=== PATIENT | male | born 1995 | race Caucasian/White ===

== ENCOUNTER 2021-01-02 22:35 | Emergency (ER) | payer OTHER, SELFPAY ==
[2021-01-02 22:56] VITALS: BP 132/85; PULSE 85; RESP 18; TEMP 36.6; O2SAT 96; BMI 31.7
== END 2021-01-03 00:45 | disposition left against medical advice (07) ==
PROVIDERS: Emergency Provider Emergency Medicine
DX: M79.672 Pain in left foot (principal)
CPT/HCPCS: 99281; 99284

== ENCOUNTER 2021-03-24 21:26 | Emergency (ER) | payer OTHER, SELFPAY ==
--- NOTE | 2021-03-24 | ECG_ITS ---
Test Reason : CHEST PAIN Blood Pressure : / mmHG Vent. Rate : 062 BPM Atrial Rate : 062 BPM P-R Int : 148 ms QRS Dur : 100 ms QT Int : 380 ms P-R-T Axes : 016 014 041 degrees QTc Int : 385 ms Normal sinus rhythm with sinus arrhythmia Normal ECG No previous ECGs available Referred By: Generic ED Physician Electronically Signed By:JOE WHITTINGTON
--- NOTE | ~2021-03-24 | XR_ITS ---
EXAMINATION: XR CHEST CLINICAL INFORMATION: Chest pain COMPARISON: None TECHNIQUE: Frontal view of the chest was obtained. FINDINGS: Lung volumes are symmetric. No focal consolidation is seen. No evidence of pneumothorax, pleural effusion, or pulmonary edema. The cardiomediastinal contour is unremarkable. No acute osseous findings are seen. XR/XR chest 1V IMPRESSION: No acute cardiopulmonary findings.
[2021-03-24 22:10] LABS: MANUAL DIFF FLAG NO
[2021-03-24 22:15] LABS: Basophils Absolute Auto 0.1 X10*3/uL (0.0-0.2); Eosinophils Absolute Auto 0.1 X10*3/uL (0.0-0.4); Eosinophils Percent Auto 1.3 % (0-4); Hematocrit 44.8 % (42-52); Hemoglobin 15.6 g/dl (14.0-18.0); Imm Gran Abs Auto 0.04 X10*3/uL (0.00-0.03); Imm Gran Pct Auto 0.5 % (0.0-0.4); Mean Corpuscular HGB Conc 34.8 g/dl (31.0-36.0); Mean Corpuscular Hemoglobin 30.8 pg (27.0-33.0); Mean Corpuscular Volume 88.4 fL (80-98); Mean Platelet Volume 10.1 fL (9.4-12.4); Monocytes Absolute Auto 0.6 X10*3/uL (0.1-1.2); Monocytes Percent Auto 7.6 % (2-11); Neutrophils Absolute Auto 3.4 X10*3/uL (2.0-8.3); Neutrophils Percent Auto 40.6 % (45-73); Platelet Count 251 X10*3/uL (160-400); Red Blood Count 5.07 X10*6/uL (4.60-5.80); Red Cell Distribution Width 12.5 % (11.0-16.0); White Blood Count 8.3 X10*3/uL (4.8-10.8)
[2021-03-24 22:36] LABS: COVID-19 Test Negative (Negative); IDNOW Serial# 9DD0AD1C; Troponin-I High Sensitivity < 3.5 ng/L (<3.5-35.0)
--- NOTE | 2021-03-24 23:14 | ED.CHESTPAIN ---
HPI - Chest Pain General Chief Complaint: Chest Pain Stated Complaint: Chest pain/Sob Time Seen by Provider: 03/24/21 22:54 Source: patient and family Mode of arrival: ambulatory Limitations: no limitations History of Present Illness HPI narrative: 25-year-old male otherwise healthy came in with his girlfriend for evaluation of chest pain and shortness of breath (girlfriend reportedly was tested positive for COVID in a different facility but she tested negative in our facility) Patient been having this chest pain for the past 3 days associated with shortness of breath pain is nonspecific mostly on the right side associated with shortness of breath and coughing pain is localized in the suprasternal area/lower neck area, pain is constant for few days, no radiation, no other associated symptoms, no relieving symptoms or aggravating factor. Patient considers himself otherwise healthy with no other medical problems. Related Data Allergies Allergy/AdvReac Type Severity Reaction Status Date / Time Sulfa (Sulfonamide Allergy Mild RASH Verified 01/02/21 22:56 Antibiotics) [SULFA (SULFONAMIDE ANTIBIOTICS)] Review of Systems Review of Systems: All other systems are reviewed and are negative Constitutional: Reports as per HPI and Reports no additional constitutional complaints Eyes: Reports as per HPI and Reports no additional eye complaints Reports system reviewed and no additional complaints, except as documented Cardiovascular: Reports as per HPI and Reports no additional cardiovascular complaints Respiratory: Reports as per HPI and Reports no additional respiratory complaints Gastrointestinal: Reports as per HPI and Reports no additional gastrointestinal complaints Genitourinary: Reports no additional female genitourinary complaints Musculoskeletal: Reports no additional musculoskeletal complaints Skin/Breast: Reports system reviewed and no additional complaints, except as docu Psychiatric: Reports no additional psychiatric complaints Endocrine: Reports no additional endocrine complaints Hematologic/Lymphatic: Reports no additional hematologic/lymphatic complaints Allergic/Immunologic: Reports no additional allergic/immunologic complaints Reports system reviewed and no additional complaints, except as documented and Reports Abnormal speech present [facility] Past Medical History Medical History Asthma Epidural hematoma Epilepsy HTN (hypertension) Kidney stones TBI (traumatic brain injury) Social History Social History Advance Directives: No Physical Exam Vital Signs: Vital Signs: Vital signs have been reviewed as appeared to be correct. Blood pressure normal. Heart rate normal. Respiration rate normal. Temperature normal. Oxygen saturation normal. Appearance: Alert. Oriented X3. No acute distress. Head: Normal external exam. Normocephalic. Atraumatic. No Lyon signs noted. No raccoon eyes noted Eyes: PERRLA. EOMI. Conjunctiva and sclera normal. Eyelids normal. ENT: TM's Normal. Pharynx normal. Uvula midline. Moist mucous membranes. No trismus noted. No drooling noted. No muffled voice noted. Neck: Normal inspection. Neck supple. FROM. No adenopathy. Thyroid Normal. No meningeal signs. No neck mass noted. CVS: Normal heart rate and rhythm. Heart sound normal. No murmurs noted. Pulses normal throughout. Respiratory: No respiratory distress. Painless inspiration. Breath sounds normal. No wheezes/rales/rhonchi noted. Chest nontender. No accessory muscle usage noted or decreased air movement noted. Abdomen: Soft and nontender. Bowel sounds normal in all 4 quadrants. No distention noted. No organomegaly noted. No visible injury noted. Back: No CVA tenderness. Full range of motion noted. Skin: Skin warm and dry. Normal skin color. Normal skin turgor. No rashes/lesions/lacerations noted. Extremities: No lower extremity edema. Extremities exhibit normal range of motion. Extremities nontender. Neuro: Oriented X 3. Cranial nerve exam: II-XII are grossly intact No motor deficit. No sensory deficit. Reflexes normal. Course Course Course Narrative: Assessment and plan. 25-year-old male with concern of COVID infection tested negative for COVID, patient has unremarkable EKG and troponin, will reassure and discharge to follow-up with PCP. MDM - Chest Pain Lab Data Attestation: I reviewed the patient's lab results. Result diagrams: 03/24/21 21:50 03/24/21 21:50 Labs: Lab Results 03/24/21 03/24/21 03/24/21 Range/Units 21:50 21:50 21:50 WBC 8.3 (4.8-10.8) X10*3/uL RBC 5.07 (4.60-5.80) X10*6/uL Hgb 15.6 (14.0-18.0) g/dl Hct 44.8 (42-52) % MCV 88.4 (80-98) fL MCH 30.8 (27.0-33.0) pg MCHC 34.8 (31.0-36.0) g/dl RDW 12.5 (11.0-16.0) % Plt Count 251 (160-400) X10*3/uL MPV 10.1 (9.4-12.4) fL Immature Gran % (Auto) 0.5 H (0.0-0.4) % Neut % (Auto) 40.6 L (45-73) % Lymph % (Auto) 49.0 H (20-40) % Becker % (Auto) 7.6 (2-11) % Eos % (Auto) 1.3 (0-4) % Baso % (Auto) 1.0 (0-2) % Lymph # (Auto) 4.0 (1.2-4.9) X10*3/uL Becker # (Auto) 0.6 (0.1-1.2) X10*3/uL Eos # (Auto) 0.1 (0.0-0.4) X10*3/uL Baso # (Auto) 0.1 (0.0-0.2) X10*3/uL Abs Immat Gran (auto) 0.04 H (0.00-0.03) X10*3/uL Absolute Neuts (auto) 3.4 (2.0-8.3) X10*3/uL Absolute Nucleated RBC 0.000 (0.0-0.012) X10*3/uL Nucleated RBC % (auto) 0.0 (0.0-0.2) /100WBC Sodium 139 (135-145) mmol/L Potassium 4.0 (3.3-5.1) mmol/L Chloride 109 H (96-108) mmol/L Carbon Dioxide 24 (22-29) mmol/L Anion Gap 10 L (12-20) BUN 10 (9-16) mg/dL Creatinine 0.86 (0.5-1.4) mg/dL Estim Creat Clear Calc TNP Estimated GFR > 60 Random Glucose 93 (60-115) mg/dL Calcium 9.0 (8.4-10.2) mg/dL Total Bilirubin 0.4 (0.0-1.0) mg/dL AST 25 (5-37) U/L ALT 30 (0-40) U/L Alkaline Phosphatase 56 (39-117) U/L Troponin I High Sens (<3.5-35.0) ng/L Total Protein 6.4 L (6.5-8.0) g/dL Albumin 4.2 (3.5-5.0) g/dL COVID-19 ([facility]) Negative (Negative) COVID-19 Clin Com See Note 03/24/21 Range/Units 21:50 WBC (4.8-10.8) X10*3/uL RBC (4.60-5.80) X10*6/uL Hgb (14.0-18.0) g/dl Hct (42-52) % MCV (80-98) fL MCH (27.0-33.0) pg MCHC (31.0-36.0) g/dl RDW (11.0-16.0) % Plt Count (160-400) X10*3/uL MPV (9.4-12.4) fL Immature Gran % (Auto) (0.0-0.4) % Neut % (Auto) (45-73) % Lymph % (Auto) (20-40) % Becker % (Auto) (2-11) % Eos % (Auto) (0-4) % Baso % (Auto) (0-2) % Lymph # (Auto) (1.2-4.9) X10*3/uL Becker # (Auto) (0.1-1.2) X10*3/uL Eos # (Auto) (0.0-0.4) X10*3/uL Baso # (Auto) (0.0-0.2) X10*3/uL Abs Immat Gran (auto) (0.00-0.03) X10*3/uL Absolute Neuts (auto) (2.0-8.3) X10*3/uL Absolute Nucleated RBC (0.0-0.012) X10*3/uL Nucleated RBC % (auto) (0.0-0.2) /100WBC Sodium (135-145) mmol/L Potassium (3.3-5.1) mmol/L Chloride (96-108) mmol/L Carbon Dioxide (22-29) mmol/L Anion Gap (12-20) BUN (9-16) mg/dL Creatinine (0.5-1.4) mg/dL Estim Creat Clear Calc Estimated GFR Random Glucose (60-115) mg/dL Calcium (8.4-10.2) mg/dL Total Bilirubin (0.0-1.0) mg/dL AST (5-37) U/L ALT (0-40) U/L Alkaline Phosphatase (39-117) U/L Troponin I High Sens < 3.5 (<3.5-35.0) ng/L Total Protein (6.5-8.0) g/dL Albumin (3.5-5.0) g/dL COVID-19 ([facility]) (Negative) COVID-19 Clin Com Imaging Data Chest x-ray: Radiologist's impression: No acute cardiopulmonary findings. ECG Data ECG #1: Interpretation: Normal sinus rhythm at 62 beats per minutes, normal intervals, no ST-T changes. Discharge Plan Discharge Clinical Impression: Chest pain Patient Disposition: Home, Self-Care Instructions: Chest Pain (ED) Referrals: Physician,None [Primary Care Provider] - 2 days
[2021-03-24 23:56] LABS: Alanine Aminotransferase 30 U/L (0-40); Albumin Level 4.2 g/dL (3.5-5.0); Alkaline Phosphatase 56 U/L (39-117); Anion Gap 10 (12-20); Aspartate Amino Transferase 25 U/L (5-37); Bilirubin Total 0.4 mg/dL (0.0-1.0); Blood Urea Nitrogen 10 mg/dL (9-16); Carbon Dioxide 24 mmol/L (22-29); Chloride 109 mmol/L (96-108); Estimated Glomerular Filt Rate > 60; Glucose Random 93 mg/dL (60-115); Sodium 139 mmol/L (135-145); Total Protein 6.4 g/dL (6.5-8.0)
[2021-03-25 00:31] VITALS: BP 120/69; PULSE 78; RESP 16; TEMP 37; O2SAT 97
== END 2021-03-25 00:34 | disposition home or self-care (01) ==
PROVIDERS: Emergency Provider Emergency Medicine
DX: R06.02 Shortness of breath (principal); R07.9 Chest pain, unspecified; Z20.822 Contact with and (suspected) exposure to COVID-19
CPT/HCPCS: 36415; 71045; 80053; 84484; 85025; 87635; 93005; 99283; 99284

== ENCOUNTER 2021-06-02 13:44 | Outpatient (REF) | payer OTHER, SELFPAY | END 2021-06-02 13:45 | disposition home or self-care (01) | LOC: HO.LAB 13:44 | PROVIDERS: Visit Provider Internal Medicine | DX: Z20.822 Contact with and (suspected) exposure to COVID-19 (principal) | CPT/HCPCS: C9803; U0003; U0005 ==

== ENCOUNTER 2022-05-31 04:47 | Emergency (ER) | payer OTHER, SELFPAY ==
[2022-05-31 05:02] VITALS: BP 145/104; PULSE 77; RESP 16; TEMP 36.6; O2SAT 98; BMI 33.3
[2022-05-31 05:20] VITALS: BP 166/104; PULSE 82; RESP 16; TEMP 36.8; O2SAT 97
--- NOTE | 2022-05-31 05:21 | ED.DENTAL ---
HPI - Dental/Oral General Chief complaint: Dental/Oral Stated complaint: swollen jaw, pain for a few days Time Seen by Provider: 05/31/22 05:20 Source: patient Mode of arrival: ambulatory Limitations: no limitations History of Present Illness HPI Narrative: Patient Has History Of Chronic dental cavities acting up lately for last 4- 5 days left 1st molar with swelling and cold and hot sensation no fever no chills Related Data Previous Rx's Medication Instructions Recorded amoxicillin 875 mg-potassium 1 tab PO BID #20 tabs 05/31/22 clavulanate 125 mg tablet oxycodone 5 mg tablet 5 mg PO Q6H PRN pain #20 tabs 05/31/22 Allergies Allergy/AdvReac Type Severity Reaction Status Date / Time Sulfa (Sulfonamide Allergy Mild RASH Verified 01/02/21 22:56 Antibiotics) [SULFA (SULFONAMIDE ANTIBIOTICS)] Review of Systems Review of Systems: Yes all other systems are reviewed and are negative PMFSH Past Medical History Medical History Asthma Epidural hematoma Epilepsy HTN (hypertension) Kidney stones TBI (traumatic brain injury) Social History Social History Advance Directives: No Advance Directives Information Provided: Yes Physical Exam Vital Signs: Vital Signs: Last Vital Signs Temp 97.9 F 05/31/22 05:02 Pulse 77 05/31/22 05:02 Resp 16 05/31/22 05:02 BP 145/104 H 05/31/22 05:02 Pulse Ox 98 05/31/22 05:02 O2 Del Method 05/31/22 05:02 BMI result Body Mass Index 33.3 Appearance: Alert. Oriented X3. No acute distress. ENT: Pharynx normal. Oral Mucosa moist Neck: Normal inspection. Neck supple. CVS: Normal heart rate and rhythm. Pulses normal. Respiratory: No respiratory distress. Abdomen: Soft and nontender. Skin: Skin warm and dry. Normal skin color. Normal skin turgor. Extremities: No lower extremity edema. No calf tenderness Neuro: Oriented X 3. HEENT: Teeth image: 1. Broken tooth with surrounding gum swelling tender to touch Discharge Plan Discharge Clinical Impression: Dental caries Patient Disposition: Home, Self-Care Instructions: Toothache (ED) Additional Instructions: Take antibiotics and pain medication as prescribed Follow-up with dentist Prescriptions: New amoxicillin-pot clavulanate 875-125 mg tablet 1 tab PO BID Qty: 20 0RF oxycodone 5 mg tablet 5 mg PO Q6H PRN (Reason: pain) Qty: 20 0RF Rx Instructions: Partial Fill upon patient request.
--- OUTSIDE RECORDS SUMMARY | 2022-05-31 05:26 | XMS_ITS | Continuity of Care Document ---
:1995 Author Organization [facility] Address [address] [place] [address]- Care Team Providers Name Role Phone Not on Staff, PCP Primary Care Physician Unavailable [place] [facility] [place] [facility] [address] [place] [address]- [place] Allergies, Adverse Reactions, Alerts Substance Reaction Severity Status sulfADIAZINE1 Persistent Mild Active sulfa drugs Active 1allergic to topical sulfa per mom Immunizations Given and Recorded Vaccine Date Status Refusal Reason influenza virus vaccine, inactivated1 03/26/12 Given pneumococcal 23-valent vaccine2 03/26/12 Given 1Early/Late Reason: Other:2Early/Late Reason: Other: Medications Josselin-[place] By Mouth, Every 4 hours, 0 Refills, Maintenance, 10/15/18 12:46:30 EDT Start Date: 10/15/18 Status: Orderedaspirin aspirin, Refills 0, Maintenance, 07/24/19 8:56:00 EST, Compound Start Date: 07/24/19 Status: Ordereddivalproex sodium 500 mg oral tablet, extended release 3 tablet, By Mouth, Daily at bedtime, # 270 tablet, 5 Refills, [id number], 165.1, cm, 01/03/21 14:39:00 EDT, Height, 84, kg, 01/03/21 14:39:00 EDT, Dry Weight Start Date: 01/10/22 Status: OrderedIbuprofen Refills 0, Maintenance, 07/24/19 8:56:00 EST Start Date: 07/24/19 Status: OrderedVITAMIN D3 2,000 UNIT TABLET VITAMIN D3 2,000 UNIT TABLET, 1, tablet, By Mouth, Daily, # 30 tablet, 5 Refills, X90 DAYS., 165.1, cm, 01/03/21 14:39:00 EDT, Height, 84, kg, 01/03/21 14:39:00 EDT, Dry Weight Start Date: 09/26/21 Status: OrderedVITAMIN D3 2,000 UNIT TABLET VITAMIN D3 2,000 UNIT TABLET, 1, tablet, By Mouth, Daily, # 30 tablet, 5 Refills, Maintenance, X90 DAYS., 04/05/22 12:43:00 EDT, 165.1, cm, 01/03/21 14:39:00 EDT, Height, 84, kg, 01/03/21 14:39:00 EDT,Dry Weight Start Date: 04/05/22 Status: OrderedVitamin D3 2000 intl units oral tablet 1 tablet = 2,000 International_Units, By Mouth, Daily, Change to 90 day supply, # 90 tablet, 1 Refills, Maintenance, 01/10/21 11:45:00 EDT, [id number], 165.1, cm, 01/03/21 14:39:00 EDT, Height,84, kg, 01/03/21 14:39:00 EDT, Dry Weight Start Date: 01/10/21 Stop Date: 07/09/21 Status: Ordered Problem List Condition Confirmation Course Effective Dates Status Health Stat us Informant Effusion of knee Confirmed 04/11/12 Active joint, left Social History Social History Type Response Smoking Status 5-9 cigarettes (between 1/4 to 1/2 pack)/day in last 30 days entered on: 01/03/21 Sex Patient Care team information PersonnelName: Not on Staff, PCP
--- OUTSIDE RECORDS SUMMARY | 2022-05-31 05:26 | XMS_ITS | Continuity of Care Document ---
:1995 Author Organization [facility] Address [address] [facility], 3rd Floor, [address] [place] [address]- Care Team Providers Name Role Phone Not on Staff, PCP Primary Care Physician Unavailable [place] [facility] [place] 10/17/20 - 11/16/20 [facility] [address], [address], [address] [place] [id number] Allergies, Adverse Reactions, Alerts Substance Reaction Severity Status sulfADIAZINE1 Persistent Mild Active sulfa drugs Active 1allergic to topical sulfa per mom Immunizations Given and Recorded Vaccine Date Status Refusal Reason influenza virus vaccine, inactivated1 03/26/12 Given pneumococcal 23-valent vaccine2 03/26/12 Given 1Early/Late Reason: Other:2Early/Late Reason: Other: Medications Josselin-[place] By Mouth, Every 4 hours, 0 Refills, Maintenance, 10/15/18 12:46:30 EDT Start Date: 10/15/18 Status: Orderedaspirin aspirin, Refills 0, Maintenance, 07/24/19 8:56:00 EST, Compound Start Date: 07/24/19 Status: OrderedDepakote ER 500 mg oral tablet, extended release 3 tablet = 1,500 mg, By Mouth, Daily at bedtime, # 270 tablet, 0 Refills, Maintenance, 10/17/20 8:53:00 EDT, [facility][id number], 172, cm, 07/24/19 8:54:00 EST, Height Start Date: 10/17/20 Stop Date: 01/15/21 Status: OrderedIbuprofen Refills 0, Maintenance, 07/24/19 8:56:00 EST Start Date: 07/24/19 Status: OrderedVitamin D3 2000 intl units oral tablet 1 tablet = 2,000 International_Units, By Mouth, Daily, Change to 90 day supply, # 90 tablet, 3 Refills, Maintenance, 01/07/20 13:59:00 EDT, [id number], 172, cm, 07/24/19 8:54:00 EST, Height Start Date: 01/07/20 Stop Date: 01/01/21 Status: Ordered Problem List Condition Effective Dates Status Health Status Informant Effusion of knee joint, 04/11/12 Active left(Confirmed)
--- OUTSIDE RECORDS SUMMARY | 2022-05-31 05:26 | XMS_ITS | Continuity of Care Document ---
:1995 Author Organization [facility] Address Unavailable , Care Team Providers Name Role Phone Not on Staff, PCP Primary Care Physician Unavailable [place] [facility] [place] 12/01/20 - 03/31/21 [facility] Attending Physician: Shirley Rodrigues MD Admitting Physician: Shirley Rodrigues MD Allergies, Adverse Reactions, Alerts Substance Reaction Severity Status sulfADIAZINE1 Persistent Mild Active sulfa drugs Active 1allergic to topical sulfa per mom Immunizations Given and Recorded Vaccine Date Status Refusal Reason influenza virus vaccine, inactivated1 03/26/12 Given pneumococcal 23-valent vaccine2 03/26/12 Given 1Early/Late Reason: Other:2Early/Late Reason: Other: Medications Josselin-[place] By Mouth, Every 4 hours, 0 Refills, Maintenance, 10/15/18 12:46:30 EDT Start Date: 10/15/18 Status: Orderedaspirin aspirin, Refills 0, Maintenance, 07/24/19 8:56:00 EST, Compound Start Date: 07/24/19 Status: Ordereddivalproex sodium 500 mg oral tablet, extended release 3 tablet, By Mouth, Daily at bedtime, # 270 tablet, 5 Refills, Maintenance, 12/13/20 14:33:00 EDT, [id number], 172, cm, 07/24/19 8:54:00 EST, Height Start Date: 12/13/20 Status: OrderedIbuprofen Refills 0, Maintenance, 07/24/19 8:56:00 EST Start Date: 07/24/19 Status: OrderedVitamin D3 2000 intl units oral tablet 1 tablet = 2,000 International_Units, By Mouth, Daily, Change to 90 day supply, # 90 tablet, 1 Refills, Maintenance, 01/10/21 11:45:00 EDT, [facility]/pharmacy #[id number], 165.1, cm, 01/03/21 14:39:00 EDT, Height,84, kg, 01/03/21 14:39:00 EDT, Dry Weight Start Date: 01/10/21 Stop Date: 07/09/21 Status: Ordered Problem List Condition Effective Dates Status Health Status Informant Effusion of knee joint, 04/11/12 Active left(Confirmed) Social History Social History Type Response Smoking Status 5-9 cigarettes (between 1/4 to 1/2 pack)/day in last 30 days entered on: 01/03/21 Sex
--- OUTSIDE RECORDS SUMMARY | 2022-05-31 05:26 | XMS_ITS | Continuity of Care Document ---
:1995 Author Organization [facility] Address [address] [place] [address]- Care Team Providers Name Role Phone Fito Ge MD Primary Care Physician Unavailable [place] [facility] [id number] Date(s): 08/27/19 - 09/06/19 [facility]/[address] [address] [facility] Attending Physician: Yamel Murphy Admitting Physician: AdmYamel boyce Referring Physician: AdmtrYamel Allergies, Adverse Reactions, Alerts Substance Reaction Severity Status sulfADIAZINE1 Persistent Mild Active sulfa drugs Active 1allergic to topical sulfa per mom Immunizations Given and Recorded Vaccine Date Status Refusal Reason influenza virus vaccine, inactivated1 03/26/12 Given pneumococcal 23-valent vaccine2 03/26/12 Given 1Early/Late Reason: Other:2Early/Late Reason: Other: Medications Josselin-[place] By Mouth, Every 4 hours, 0 Refills, Maintenance, 10/15/18 12:46:30 EDT Start Date: 10/15/18 Status: Orderedaspirin aspirin, Refills 0, Maintenance, 07/24/19 8:56:00 EST, Compound Start Date: 07/24/19 Status: OrderedDepakote ER 500 mg oral tablet, extended release 3 tablet = 1,500 mg, By Mouth, Daily at bedtime, # 270 tablet, 3 Refills, Maintenance, 10/15/18 13:12:53 EDT, Increasing dose and changing to 90 day supply. Start Date: 10/15/18 Stop Date: 10/10/19 Status: OrderedIbuprofen Refills 0, Maintenance, 07/24/19 8:56:00 EST Start Date: 07/24/19 Status: OrderedVitamin D3 2000 intl units oral tablet 1 tablet = 2,000 International_Units, By Mouth, Daily, # 30 tablet, 5 Refills, Maintenance, 07/24/2015:20:00 EST, [facility]/pharmacy #[id number], 172, cm, 07/24/19 8:54:00 EST, Height Start Date: 07/24/19 Stop Date: 01/20/20 Status: Ordered Problem List Condition Effective Dates Status Health Status Informant Effusion of knee joint, 04/11/12 Active left(Confirmed)
--- OUTSIDE RECORDS SUMMARY | 2022-05-31 05:26 | XMS_ITS | Continuity of Care Document ---
:1995 Author Organization [facility] Address [address] [facility], 3rd Floor, [address] [place] [address]- Care Team Providers Name Role Phone Not on Staff, PCP Primary Care Physician Unavailable Encounter [facility] [place]): 04/12/20 - 09/18/20 [facility] [address], [address], [address] [place] [id number] Attending Physician: Shirley Rodrigues MD Admitting Physician: Shirley Rodrigues MD Allergies, Adverse Reactions, Alerts Substance Reaction Severity Status sulfADIAZINE1 Persistent Mild Active sulfa drugs Active 1allergic to topical sulfa per mom Immunizations Given and Recorded Vaccine Date Status Refusal Reason influenza virus vaccine, inactivated1 03/26/12 Given pneumococcal 23-valent vaccine2 03/26/12 Given 1Early/Late Reason: Other:2Early/Late Reason: Other: Medications Josselin-[place] By Mouth, Every 4 hours, 0 Refills, Maintenance, 10/15/18 12:46:30 EDT Start Date: 10/15/18 Status: Orderedaspirin aspirin, Refills 0, Maintenance, 07/24/19 8:56:00 EST, Compound Start Date: 07/24/19 Status: OrderedDepakote ER 500 mg oral tablet, extended release 3 tablet = 1,500 mg, By Mouth, Daily at bedtime, # 270 tablet, 3 Refills, Maintenance, 10/13/19 7:52:00 EDT, [facility]/pharmacy #[id number], 172, cm, 07/24/19 8:54:00 EST, Height Start Date: 10/13/19 Stop Date: 10/07/20 Status: OrderedIbuprofen Refills 0, Maintenance, 07/24/19 8:56:00 EST Start Date: 07/24/19 Status: OrderedVitamin D3 2000 intl units oral tablet 1 tablet = 2,000 International_Units, By Mouth, Daily, Change to 90 day supply, # 90 tablet, 3 Refills, Maintenance, 01/07/20 13:59:00 EDT, [id number], 172, cm, 07/24/19 8:54:00 EST, Height Start Date: 01/07/20 Stop Date: 01/01/21 Status: Ordered Problem List Condition Effective Dates Status Health Status Informant Effusion of knee joint, 04/11/12 Active left(Confirmed)
--- OUTSIDE RECORDS SUMMARY | 2022-05-31 05:27 | XMS_ITS | Continuity of Care Document ---
:1995 Author Organization [facility] Address [address] [place] [address]- Care Team Providers Name Role Phone Not on Staff, PCP Primary Care Physician Unavailable [place] [facility] [place](s): 04/05/22 - 05/05/22 [facility] [address] [place] [address]- [place] Allergies, Adverse Reactions, Alerts Substance Reaction Severity Status sulfADIAZINE1 Persistent Mild Active sulfa drugs Active 1allergic to topical sulfa per mom Immunizations Given and Recorded Vaccine Date Status Refusal Reason influenza virus vaccine, inactivated1 03/26/12 Given pneumococcal 23-valent vaccine2 03/26/12 Given 1Early/Late Reason: Other:2Early/Late Reason: Other: Medications Josselin-[place] By Mouth, Every 4 hours, 0 Refills, Maintenance, 10/15/18 12:46:30 EDT Start Date: 10/15/18 Status: Orderedaspirin aspirin, Refills 0, Maintenance, 07/24/19 8:56:00 EST, Compound Start Date: 07/24/19 Status: Ordereddivalproex sodium 500 mg oral tablet, extended release 3 tablet, By Mouth, Daily at bedtime, # 270 tablet, 5 Refills, [id number], 165.1, cm, 01/03/21 14:39:00 EDT, Height, 84, [...]
--- OUTSIDE RECORDS SUMMARY | 2022-05-31 05:27 | XMS_ITS | Continuity of Care Document ---
:1995 Author Organization [facility] Address [address] [facility], 3rd Floor, [address] [place] [address]- Care Team Providers Name Role Phone Fito Ge MD Primary Care Physician [place] [facility] [place]): [place]19 [facility] [address], [address], [address] [place] [id number] [facility] Attending Physician: Yamel Murphy Admitting Physician: Yamel Murphy Referring Physician: AdmtrYamel Allergies, Adverse Reactions, Alerts Substance Reaction Severity Status sulfADIAZINE1 Persistent Mild Active sulfa drugs Active 1allergic to topical sulfa per mom Immunizations Given and Recorded Vaccine Date Status Refusal Reason influenza virus vaccine, inactivated1 03/26/12 Given pneumococcal 23-valent vaccine2 03/26/12 Given 1Early/Late Reason: Other:2Early/Late Reason: Other: Medications Josselin-[place] By Mouth, Every 4 hours, 0 Refills, [...] 30 tablet, 5 Refills, Maintenance, 07/24/2015:20:00 EST, [facility]/pharmacy #[id number], 172, cm, 07/24/19 8:54:00 EST, Height Start Date: 07/24/19 Stop Date: 01/20/20 Status: Ordered Problem List Condition Effective Dates Status Health Status Informant Effusion of knee joint, 04/11/12 Active left(Confirmed)
--- OUTSIDE RECORDS SUMMARY | 2022-05-31 05:27 | XMS_ITS | Continuity of Care Document ---
:1995 Author Organization [facility] Address [address] [place] [address]- Care Team Providers Name Role Phone Not on Staff, PCP Primary Care Physician Unavailable Encounter [facility] Date(s): 01/12/20 - 01/12/[address] [address]- [facility] Discharge Disposition: A-D/C Home Attending Physician: Cal Ramesh MD Admitting Physician: Cal Ramesh MD Referring Physician: Not on Staff, Referring MD Allergies, Adverse Reactions, Alerts Substance Reaction Severity Status sulfADIAZINE1 Persistent Mild Active sulfa drugs Active 1allergic to topical sulfa per mom Immunizations Given and Recorded Vaccine Date Status Refusal Reason influenza virus vaccine, inactivated1 03/26/12 Given pneumococcal 23-valent vaccine2 03/26/12 Given 1Early/Late Reason: Other:2Early/Late Reason: Other: Medications Josselin-[place] By Mouth, Every 4 hours, 0 Refills, Maintenance, 10/15/18 12:46:30 EDT Start Date: 10/15/18 Status: Orderedaspirin aspirin, Refills 0, Maintenance, 07/24/19 8:56:00 EST, Compound Start Date: 07/24/19 Status: OrderedDepakote ER 500 mg oral tablet, extended release 3 tablet = 1,500 mg, By Mouth, Daily at bedtime, # 270 tablet, 3 Refills, Maintenance, 10/13/19 7:52:00 EDT, [facility]/pharmacy #[id number], 172, cm, 07/24/19 8:54:00 [...] Effusion of knee joint, 04/11/12 Active left(Confirmed) Vital Signs Most recent to oldest [Reference 1 2 3 Range]: Oxygen Saturation [94-100 %] 100 % 100 % 98 % (01/12/20 9:50 PM) (01/12/20 7:57 PM) (01/12/20 7:55 P M) Pulse Rate [55-90 bpm] 73 bpm 91 bpm 94 bpm (01/12/20 9:50 PM) *H* *H* (01/12/20 7:57 PM) (01/12/20 7:55 PM ) Blood Pressure [90-138/55-84 mm 134/97 mm Hg 167/77 mm Hg Hg] (01/12/20 9:50 PM) *H* (01/12/20 7:57 PM) Respiratory Rate [16-30 br/min] 20 br/min 18 br/min (01/12/20 9:50 PM) (01/12/20 7:57 PM) Temperature [96.8-100.4 DegF] 98.4 DegF (01/12/20 7:57 PM) Mode of Delivery (Oxygen) Room air Room air (01/12/20 9:50 PM) (01/12/20 7:57 PM) Blood pressure sites Arm, right Arm, left (01/12/20 9:50 PM) (01/12/20 7:57 PM) Temperature Route Oral (01/12/20 7:57 PM)
--- OUTSIDE RECORDS SUMMARY | 2022-05-31 05:27 | XMS_ITS | Continuity of Care Document ---
:1995 Author Organization [facility] Address [address] [facility], 3rd Floor, [address] [place] [id number]- Care Team Providers Name Role Phone Fito Ge MD Primary Care Physician Encounter [facility] Date(s): 07/24/19 - 07/31/19 [facility] [address], [address] Floor, [address] [place] [id number]- [facility] Attending Physician: Not on Staff, Attending MD Allergies, Adverse Reactions, Alerts Substance Reaction Severity Status sulfADIAZINE1 Persistent Mild Active sulfa drugs Active 1allergic to topical sulfa per mom Immunizations Given and Recorded Vaccine Date Status Refusal Reason influenza virus vaccine, inactivated1 03/26/12 Given pneumococcal 23-valent vaccine2 03/26/12 Given 1Early/Late Reason: Other:2Early/Late Reason: Other: Medications Josselin-[place] By Mouth, Every 4 hours, 0 Refills, [...] 30 tablet, 5 Refills, Maintenance, 07/24/2015:20:00 EST, [facility] #[id number], 172, cm, 07/24/19 8:54:00 EST, Height Start Date: 07/24/19 Stop Date: 01/20/20 Status: Ordered Problem List Condition Effective Dates Status Health Status Informant Effusion of knee joint, 04/11/12 Active left(Confirmed)
--- OUTSIDE RECORDS SUMMARY | 2022-05-31 05:27 | XMS_ITS | Continuity of Care Document ---
:1995 Author Organization [facility] Address [address] [place] [address]- Care Team Providers Name Role Phone Not on Staff, PCP Primary Care Physician Unavailable [place] [facility] [place]/03[place]21 - 01/03/[address] [address]- Encounter Diagnosis Foot pain (Final) - 01/03/21 Discharge Disposition: A-D/C Home Attending Physician: Aura Perry MD Admitting Physician: Aura Perry MD Referring Physician: Not on Staff, Referring MD Allergies, Adverse Reactions, Alerts Substance Reaction Severity Status sulfADIAZINE1 Persistent Mild Active sulfa drugs Active 1allergic to topical sulfa per mom Immunizations Given and Recorded Vaccine Date Status Refusal Reason influenza virus vaccine, inactivated1 03/26/12 Given pneumococcal 23-valent vaccine2 03/26/12 Given 1Early/Late Reason: Other:2Early/Late Reason: Other: Medications Josselin-[place] By Mouth, Every 4 hours, 0 Refills, Maintenance, 10/15/18 12:46:30 EDT Start Date: 10/15/18 Status: Orderedaspirin aspirin, Refills 0, Maintenance, 07/24/19 8:56:00 EST, Compound Start Date: 07/24/19 Status: Ordereddivalproex sodium 500 mg oral tablet, extended release 3 tablet, By Mouth, Daily at bedtime, # 270 tablet, 5 Refills, Maintenance, 12/13/20 14:33:00 EDT, [id number], 172, cm, 07/24/19 8:54:00 EST, Height Start [...] Vital Signs Most recent to oldest [Reference Range]: 1 2 Height 165.1 cm (01/03/21 2:39 PM) Weight 84 kg (01/03/21 2:39 PM) Oxygen Saturation [94-100 %] 97 % 99 % (01/03/21 2:39 PM) (01/03/21 2:28 PM) Pulse Rate [55-90 bpm] 87 bpm 74 bpm (01/03/21 2:39 PM) (01/03/21 2:28 PM) Blood Pressure [90-138/55-84 mm Hg] 139/82 mm Hg *H* (01/03/21 2:39 PM) Respiratory Rate [16-30 br/min] 16 br/min 18 br/mi n (01/03/21 2:39 PM) (01/03/21 2:28 PM) Temperature [96.8-100.4 DegF] 98.3 DegF (01/03/21 2:39 PM) Mode of Delivery (Oxygen) Room air Room air (01/03/21 2:39 PM) (01/03/21 2:28 PM) Temperature Route Oral (01/03/21 2:39 PM) Dry Weight 84 kg (01/03/21 2:39 PM) Weight Obtained Via Patient/family stated (01/03/21 2:39 PM) Dry Weight Obtained Via Patient/family stated (01/03/21 2:39 PM) Social History Social History Type Response Smoking Status 5-9 cigarettes (between 1/4 to 1/2 pack)/day in last 30 days entered on: 01/03/21 Sex
--- OUTSIDE RECORDS SUMMARY | 2022-05-31 05:27 | XMS_ITS | Continuity of Care Document ---
:1995 Author Organization [facility] Address Unavailable , Care Team Providers Name Role Phone Not on Staff, PCP Primary Care Physician Unavailable Encounter [facility] ACCT R [id number] Date(s): 10/03/21 - 11/02/21 [facility] Attending Physician: Yamel Murphy Admitting Physician: Yamel Murphy Referring Physician: Yamel Murphy Allergies, Adverse Reactions, Alerts Substance Reaction Severity Status sulfADIAZINE1 Persistent Mild Active sulfa drugs Active 1allergic to topical sulfa per mom Immunizations Given and Recorded Vaccine Date Status Refusal Reason influenza virus vaccine, inactivated1 03/26/12 Given pneumococcal 23-valent vaccine2 03/26/12 Given 1Early/Late Reason: Other:2Early/Late Reason: Other: Medications Josselin-[place] By Mouth, Every 4 hours, 0 Refills, Maintenance, 10/15/18 12:46:30 EDT Start Date: 10/15/18 Status: Orderedaspirin aspirin, Refills 0, Maintenance, 07/24/19 8:56:00 EST, Compound Start Date: 07/24/19 Status: Ordereddivalproex sodium 500 mg oral tablet, extended release 3 tablet, By Mouth, Daily at bedtime, # 270 tablet, 5 Refills, Maintenance, 12/13/20 14:33:00 EDT, [facility] STORE [id number], 172, cm, 07/24/19 8:54:00 EST, Height Start Date: 12/13/20 Status: OrderedIbuprofen Refills 0, Maintenance, 07/24/19 8:56:00 EST Start Date: 07/24/19 Status: OrderedVITAMIN D3 2,000 UNIT TABLET VITAMIN D3 2,000 UNIT TABLET, 1, tablet, By Mouth, Daily, # 30 tablet, 5 Refills, X90 DAYS., 165.1, cm, 01/03/21 14:39:00 EDT, Height, 84, kg, 01/03/21 14:39:00 EDT, Dry Weight Start Date: 09/26/21 Status: OrderedVitamin D3 2000 intl units oral [...]
--- OUTSIDE RECORDS SUMMARY | 2022-05-31 05:27 | XMS_ITS | Continuity of Care Document ---
:1995 Author Organization [facility] Address Unavailable , Care Team Providers Name Role Phone Not on Staff, PCP Primary Care Physician Unavailable [place] [facility] [place]): 02/24/21 - 04/08/21 [facility] Attending Physician: Corinne Collins NP Admitting Physician: Dennis GARCÍA, Corinne Scott Allergies, Adverse Reactions, Alerts Substance Reaction Severity Status sulfADIAZINE1 Persistent Mild Active sulfa drugs Active 1allergic to topical sulfa per mom Immunizations Given and Recorded Vaccine Date Status Refusal Reason influenza virus vaccine, inactivated1 03/26/12 Given pneumococcal 23-valent vaccine2 03/26/12 Given 1Early/Late Reason: Other:2Early/Late Reason: Other: Medications Josselin-[place] By Mouth, Every 4 hours, 0 Refills, Maintenance, 10/15/18 12:46:30 EDT Start Date: 10/15/18 Status: Orderedaspirin aspirin, Refills 0, Maintenance, 07/24/19 8:56:00 EST, Compound Start Date: 07/24/19 Status: Ordereddivalproex sodium 500 mg oral tablet, extended release 3 tablet, By Mouth, Daily at bedtime, # 270 tablet, 5 Refills, Maintenance, 12/13/20 14:33:00 EDT, [id number], 172, cm, 07/24/19 8:54:00 EST, Height Start Date: 12/13/20 Status: OrderedIbuprofen Refills 0, Maintenance, 07/24/19 8:56:00 EST Start Date: 07/24/19 Status: OrderedVitamin D3 2000 intl units oral tablet 1 tablet = 2,000 International_Units, By Mouth, Daily, Change to 90 day supply, # 90 tablet, 1 Refills, Maintenance, 01/10/21 11:45:00 EDT, [facility]/pharmacy #[id number], 165.1, cm, 01/03/21 14:39:00 EDT, Height,84, [...]
--- OUTSIDE RECORDS SUMMARY | 2022-05-31 05:27 | XMS_ITS | Continuity of Care Document ---
:1995 Author Organization [facility] Address Unavailable , Care Team Providers Name Role Phone Not on Staff, PCP Primary Care Physician Unavailable [place] [facility] [place] [facility] [place] [id number] Date(s): 05/26/21 - 09/23/21 [facility] Attending Physician: Corinne Collins NP Admitting Physician: Dennis GARCÍA, Corinne Scott Allergies, Adverse Reactions, Alerts Substance Reaction Severity Status sulfADIAZINE1 Persistent Mild Active sulfa drugs Active 1allergic to topical sulfa per mom Immunizations Given and Recorded Vaccine Date Status Refusal Reason influenza virus vaccine, inactivated1 03/26/12 Given pneumococcal 23-valent vaccine2 03/26/12 Given 1Early/Late Reason: Other:2Early/Late Reason: Other: Medications Josselin-[place] By Mouth, Every 4 hours, 0 Refills, Maintenance, 10/15/18 12:46:30 EDT Start Date: 10/15/18 Status: Orderedaspirin aspirin, Refills 0, Maintenance, 07/24/19 8:56:00 EST, Compound Start Date: 07/24/19 Status: Ordereddivalproex sodium 500 mg oral tablet, extended release 3 tablet, By Mouth, Daily at bedtime, # 270 tablet, 5 Refills, Maintenance, 12/13/20 14:33:00 EDT, [id number], 172, cm, 07/24/19 8:54:00 EST, Height Start [...]
[2022-05-31] MEDS: Amoxicillin/Potassium Clav 875 MG TABLET PO (05:47)
[2022-05-31] MEDS: oxyCODONE HCl Immed Release 5 MG TABLET 10 MG PO (05:47)
== END 2022-05-31 05:54 | disposition home or self-care (01) ==
PROVIDERS: Emergency Provider Internal Medicine; PCP Internal Medicine
DX: K02.9 Dental caries, unspecified (principal)
CPT/HCPCS: 99283; 99284

== ENCOUNTER 2022-12-16 20:53 | Emergency (ER) | payer OTHER, SELFPAY ==
--- NOTE | ~2022-12-16 | XR_ITS ---
EXAMINATION: XR CHEST CLINICAL INFORMATION: Chest pain COMPARISON: 03/24/2021 TECHNIQUE: Frontal view of the chest was obtained. FINDINGS: Cardiac leads overlie the chest. The lungs are well expanded. There is no focal consolidation, edema, or effusion. No pneumothorax. The cardiomediastinal silhouette is within normal limits. No acute osseous abnormality. XR/XR chest 1V IMPRESSION: Clear lungs.
[2022-12-16 20:59] VITALS: BP 150/100; PULSE 133; RESP 20; TEMP 39.3; O2SAT 96; BMI 33.1
[2022-12-16 21:23] LABS: Basophils Percent Auto 0.8 % (0-2); Eosinophils Percent Auto 0.4 % (0-4); Hematocrit 49.8 % (42.0-52.0); Hemoglobin 17.5 g/dl (14.0-18.0); Imm Gran Abs Auto 0.04 X10*3/uL (0.00-0.03); Imm Gran Pct Auto 0.8 % (0.0-0.4); Lymphocytes Absolute Auto 0.9 X10*3/uL (1.2-4.9); Lymphocytes Percent Auto 19.3 % (20-40); MANUAL DIFF FLAG SCAN; Mean Corpuscular HGB Conc 35.1 g/dl (31.0-36.0); Mean Corpuscular Volume 85.3 fL (80.0-98.0); Mean Platelet Volume 9.8 fL (9.4-12.4); Monocytes Absolute Auto 1.1 X10*3/uL (0.1-1.2); Monocytes Percent Auto 22.7 % (2-11); Neutrophils Absolute Auto 2.7 x10*3/uL (2.0-8.3); Platelet Count 193 X10*3/uL (160-400); Red Blood Count 5.84 X10*6/uL (4.60-5.80); Red Cell Distribution Width 12.6 % (11.0-16.0); SCAN SMEAR FLAG 1; White Blood Count 4.8 X10*3/uL (4.8-10.8)
[2022-12-16 21:37] LABS: Alanine Aminotransferase 45 U/L (0-40); Albumin Level 4.5 g/dL (3.5-5.0); Alkaline Phosphatase 55 U/L (39-117); Anion Gap 16 (12-20); Aspartate Amino Transferase 38 U/L (5-37); Bilirubin Total 0.4 mg/dL (0.0-1.0); Blood Urea Nitrogen 15 mg/dL (9-16); Calcium 9.6 mg/dL (8.4-10.2); Carbon Dioxide 23 mmol/L (22-29); Chloride 103 mmol/L (96-108); Creatinine Clr Calc Pharmacy 104.1; Estimated Glomerular Filt Rate > 60; Glucose Random 104 mg/dL (60-115); Sodium 138 mmol/L (135-145); Total Protein 7.4 g/dL (6.5-8.0)
--- NOTE | 2022-12-16 21:39 | PC.NURSE ---
Assumed care of pt. Pt sitting on stretcher, spouse at bedside. Pt gave following history - hx of seizure disorder, on Depakote with no recent changes in dosing. Had root canal on 12/06, with abx completed on 12/12, drank significant amount of ETOH on 12/13 in pm. Woke on 12/14 with fever, headache, eye pain, diaphoresis, lower back pain. Over next two days, pt had decreasing symptoms. Presenting this pm for recurrent fever, palpitations, concners over interaction of alcohol with his depakote.
[2022-12-16 21:41] LABS: SLIDE REVIEW VERIFIED
[2022-12-16 22:00] LABS: Influenza A PCR NEGATIVE (Negative); Influenza B PCR NEGATIVE (Negative); Resp Syncy Virus RNA Qual PCR NEGATIVE (Negative); SARS COV2 PCR INHOUSE NEGATIVE (Negative)
--- NOTE | 2022-12-16 22:02 | ED_ITS ---
HPI - General Adult General Chief complaint: General Medical Stated complaint: back pain/hbsoc957.7/eye pain/rapid heartrate Time Seen by Provider: 12/16/22 21:33 Related Data Previous Rx's Medication Instructions Recorded amoxicillin 875 mg-potassium 1 tab PO BID #20 tabs 05/31/22 clavulanate 125 mg tablet oxycodone 5 mg tablet 5 mg PO Q6H PRN pain #20 tabs 05/31/22 Allergies Allergy/AdvReac Type Severity Reaction Status Date / Time Sulfa (Sulfonamide Allergy Mild RASH Verified 01/02/21 22:56 Antibiotics) [SULFA (SULFONAMIDE ANTIBIOTICS)] morphine AdvReac Unknown Verified 12/16/22 20:58 PMFSH Past Medical History Medical History Asthma Epidural hematoma Epilepsy HTN (hypertension) Kidney stones TBI (traumatic brain injury) Social History Social History Alcohol intake: current Alcohol intake frequency: a few times a month Alcohol type: beer, wine and hard liquor Smoked in Last 30 Days: Yes Use of substances other than those prescribed or required for medical reasons: Yes Substance Use Type: Marijuana Substance Use Frequency: Chronic Longstanding Advance Directives: No Advance Directives Information Provided: Yes Physical Exam ED Vital Signs: Vital Signs - 24 hr 12/16/22 20:59 12/16/22 22:30 12/17/22 00:24 Temperature 102.7 F H 102.7 F H 99.2 F Pulse Rate 133 H 113 H 97 Respiratory Rate 20 14 18 Blood Pressure 150/100 H 138/87 130/73 Pulse Oximetry 96 95 97 Oxygen Delivery Method Room Air Room Air BMI result Body Mass Index 33.1 Medications Administered Discontinued Medications Generic Name Dose Route Start Last Admin Trade Name Freq PRN Reason Stop Dose Admin Sodium Chloride 1,000 mls @ 999 mls/hr 12/16/22 22:00 12/16/22 23:07 Ns IV 12/16/22 23:00 999 mls/hr .Q1H1M [place] Administration Sodium Chloride 1,000 mls @ 999 mls/hr 12/16/22 22:15 12/16/22 23:08 Ns IV 12/16/22 23:15 999 mls/hr .Q1H1M [place] Administration Ketorolac Tromethamine 30 mg 12/16/22 22:02 12/16/22 23:06 Ketorolac Tromethamine 30 Mg/Ml Vial IVPUSH 12/16/22 22:03 30 mg ONCE ONE Administration Medical Decision Making Medical Decision Making [facility] Narrative: Patient's presents today with having fever. Generalized malaise. He did have a dental procedure done. On exam patient's floor of the mouth was completely soft. There is no tenderness. There is no hoarseness in his voice. There is no tripoding. Patient tolerated own saliva well. Graham the risk of lid wake is extremely low. Patient's posterior pharynx was normal. Patient's Monospot test was negative. Urine showed no signs of infection. Patient's ESR is normal. There is no evidence for spinal abscess. Has no spinal tenderness elicited on palpation. Patient has chest x-ray was negative for pneumonia. Given IV fluids. Symptomatically improved dramatically. Heart rate is down. Temperature is down. Patient's lactate is 1.0. He is in stable condition more likely symptom is viral in origin. However Lyme Ehrlichia sys for B0 cyst was sent. Patient states he does not go outside. His history is not consistent with meningitis patient's neck was supple. Patient's flu RSV COVID were all negative. Differential Diagnosis Viral illness, pneumonia, mononucleosis, urinary tract infection, spinal abscess, tick-borne illnesses Admission/Observation Consideration of admission/observation: Escalation of care including admission/observation considered Lab Data [facility] Lab Attestation statement: I reviewed the patient's lab results. 12/16/22 21:15 12/16/22 21:15 Labs: Lab Results 12/16/22 12/16/22 12/16/22 Range/Units 21:15 21:15 21:15 WBC 4.8 (4.8-10.8) X10*3/uL RBC 5.84 H (4.60-5.80) X10*6/uL Hgb 17.5 (14.0-18.0) g/dl Hct 49.8 (42.0-52.0) % MCV 85.3 (80.0-98.0) fL MCH 30.0 (27.0-33.0) pg MCHC 35.1 (31.0-36.0) g/dl RDW 12.6 (11.0-16.0) % Plt Count 193 (160-400) X10*3/uL MPV 9.8 (9.4-12.4) fL Immature Gran % (Auto) 0.8 H (0.0-0.4) % Neut % (Auto) 56.0 (45-73) % Lymph % (Auto) 19.3 L (20-40) % [place] % (Auto) 22.7 H (2-11) % Eos % (Auto) 0.4 (0-4) % Baso % (Auto) 0.8 (0-2) % Lymph # (Auto) 0.9 L (1.2-4.9) X10*3/uL [place] # (Auto) 1.1 (0.1-1.2) X10*3/uL Eos # (Auto) 0.0 (0.0-0.4) X10*3/uL Baso # (Auto) 0.0 (0.0-0.2) X10*3/uL Abs Immat Gran (auto) 0.04 H (0.00-0.03) X10*3/uL Absolute Neuts (auto) 2.7 (2.0-8.3) x10*3/uL Absolute Nucleated RBC 0.000 (0.0-0.012) X10*3/uL Nucleated RBC % (auto) 0.0 (0.0-0.2) /100WBC Smear Tech's Comments VERIFIED ESR (0-15) MM/HR Sodium 138 (135-145) mmol/L Potassium 4.0 (3.3-5.1) mmol/L Chloride 103 (96-108) mmol/L Carbon Dioxide 23 (22-29) mmol/L Anion Gap 16 (12-20) BUN 15 (9-16) mg/dL Creatinine 1.09 (0.5-1.4) mg/dL Estim Creat Clear Calc 104.1 Estimated GFR > 60 Random Glucose 104 (60-115) mg/dL Lactic Acid 1.0 (0.5-2.0) mmol/L Calcium 9.6 D (8.4-10.2) mg/dL Total Bilirubin 0.4 (0.0-1.0) mg/dL AST 38 H (5-37) U/L ALT 45 H (0-40) U/L Alkaline Phosphatase 55 (39-117) U/L C-Reactive Protein 2.97 H (< or = 0.50) mg/dL Total Protein 7.4 (6.5-8.0) g/dL Albumin 4.5 (3.5-5.0) g/dL Urine Color Urine Appearance Urine pH (5.0-9.0) Ur Specific [place] (1.005-1.025) Urine Protein (Neg-Trace) mg/dL Urine Glucose (UA) (Negative) mg/dL Urine Ketones (Negative) mg/dL Urine Blood (Negative) Urine Nitrite (Negative) Ur Leukocyte Esterase (Negative) Urine RBC (0-2) /HPF Urine WBC (0-5) /HPF Ur Squamous Epith Cells (0-2) /HPF Urine Bacteria (None Seen) Hyaline Casts (0-2) /LPF Monoscreen (Negative) Influenza Type A (PCR) (Negative) Influenza Type B (PCR) (Negative) RSV RNA Qual (PCR) (Negative) SARS-CoV-2 RNA (RT-PCR) (Negative) 12/16/22 12/16/22 12/16/22 Range/Units 21:15 21:15 21:15 WBC (4.8-10.8) X10*3/uL RBC (4.60-5.80) X10*6/uL Hgb (14.0-18.0) g/dl Hct (42.0-52.0) % MCV (80.0-98.0) fL MCH (27.0-33.0) pg MCHC (31.0-36.0) g/dl RDW (11.0-16.0) % Plt Count (160-400) X10*3/uL MPV (9.4-12.4) fL Immature Gran % (Auto) (0.0-0.4) % Neut % (Auto) (45-73) % Lymph % (Auto) (20-40) % [place] % (Auto) (2-11) % Eos % (Auto) (0-4) % Baso % (Auto) (0-2) % Lymph # (Auto) (1.2-4.9) X10*3/uL [place] # (Auto) (0.1-1.2) X10*3/uL Eos # (Auto) (0.0-0.4) X10*3/uL Baso # (Auto) (0.0-0.2) X10*3/uL Abs Immat Gran (auto) (0.00-0.03) X10*3/uL Absolute Neuts (auto) (2.0-8.3) x10*3/uL Absolute Nucleated RBC (0.0-0.012) X10*3/uL Nucleated RBC % (auto) (0.0-0.2) /100WBC Smear Tech's Comments ESR 2 (0-15) MM/HR Sodium (135-145) mmol/L Potassium (3.3-5.1) mmol/L Chloride (96-108) mmol/L Carbon Dioxide (22-29) mmol/L Anion Gap (12-20) BUN (9-16) mg/dL Creatinine (0.5-1.4) mg/dL Estim Creat Clear Calc Estimated GFR Random Glucose (60-115) mg/dL Lactic Acid (0.5-2.0) mmol/L Calcium (8.4-10.2) mg/dL Total Bilirubin (0.0-1.0) mg/dL AST (5-37) U/L ALT (0-40) U/L Alkaline Phosphatase (39-117) U/L C-Reactive Protein (< or = 0.50) mg/dL Total Protein (6.5-8.0) g/dL Albumin (3.5-5.0) g/dL Urine Color Urine Appearance Urine pH (5.0-9.0) Ur Specific [place] (1.005-1.025) Urine Protein (Neg-Trace) mg/dL Urine Glucose (UA) (Negative) mg/dL Urine Ketones (Negative) mg/dL Urine Blood (Negative) Urine Nitrite (Negative) Ur Leukocyte Esterase (Negative) Urine RBC (0-2) /HPF Urine WBC (0-5) /HPF Ur Squamous Epith Cells (0-2) /HPF Urine Bacteria (None Seen) Hyaline Casts (0-2) /LPF Monoscreen Negative (Negative) Influenza Type A (PCR) NEGATIVE (Negative) Influenza Type B (PCR) NEGATIVE (Negative) RSV RNA Qual (PCR) NEGATIVE (Negative) SARS-CoV-2 RNA (RT-PCR) NEGATIVE (Negative) 12/16/22 Range/Units 22:32 WBC (4.8-10.8) X10*3/uL RBC (4.60-5.80) X10*6/uL Hgb (14.0-18.0) g/dl Hct (42.0-52.0) % MCV (80.0-98.0) fL MCH (27.0-33.0) pg MCHC (31.0-36.0) g/dl RDW (11.0-16.0) % Plt Count (160-400) X10*3/uL MPV (9.4-12.4) fL Immature Gran % (Auto) (0.0-0.4) % Neut % (Auto) (45-73) % Lymph % (Auto) (20-40) % [place] % (Auto) (2-11) % Eos % (Auto) (0-4) % Baso % (Auto) (0-2) % Lymph # (Auto) (1.2-4.9) X10*3/uL [place] # (Auto) (0.1-1.2) X10*3/uL Eos # (Auto) (0.0-0.4) X10*3/uL Baso # (Auto) (0.0-0.2) X10*3/uL Abs Immat Gran (auto) (0.00-0.03) X10*3/uL Absolute Neuts (auto) (2.0-8.3) x10*3/uL Absolute Nucleated RBC (0.0-0.012) X10*3/uL Nucleated RBC % (auto) (0.0-0.2) /100WBC Smear Tech's Comments ESR (0-15) MM/HR Sodium (135-145) mmol/L Potassium (3.3-5.1) mmol/L Chloride (96-108) mmol/L Carbon Dioxide (22-29) mmol/L Anion Gap (12-20) BUN (9-16) mg/dL Creatinine (0.5-1.4) mg/dL Estim Creat Clear Calc Estimated GFR Random Glucose (60-115) mg/dL Lactic Acid (0.5-2.0) mmol/L Calcium (8.4-10.2) mg/dL Total Bilirubin (0.0-1.0) mg/dL AST (5-37) U/L ALT (0-40) U/L Alkaline Phosphatase (39-117) U/L C-Reactive Protein (< or = 0.50) mg/dL Total Protein (6.5-8.0) g/dL Albumin (3.5-5.0) g/dL Urine Color Dark Yellow Urine Appearance Clear Urine pH 6.0 (5.0-9.0) Ur Specific [place] >= 1.030 H (1.005-1.025) Urine Protein Trace (Neg-Trace) mg/dL Urine Glucose (UA) Negative (Negative) mg/dL Urine Ketones Trace (Negative) mg/dL Urine Blood Trace H (Negative) Urine Nitrite Negative (Negative) Ur Leukocyte Esterase Negative (Negative) Urine RBC 3-5 H (0-2) /HPF Urine WBC 0-5 (0-5) /HPF Ur Squamous Epith Cells 0-2 (0-2) /HPF Urine Bacteria None Seen (None Seen) Hyaline Casts 0-2 (0-2) /LPF Monoscreen (Negative) Influenza Type A (PCR) (Negative) Influenza Type B (PCR) (Negative) RSV RNA Qual (PCR) (Negative) SARS-CoV-2 RNA (RT-PCR) (Negative) Independent Interpretation I performed an independent interpretation of an: Plain X-Ray Interpretation: Chest x-ray negative for pneumonia pneumothorax Independent Historian Clinical information obtained from an independent historian. History obtained from or confirmed by: Spouse Discharge Plan Discharge Clinical Impression: Fever Patient Disposition: Home, Self-Care Instructions: Fever in Adults (ED) Prescriptions: No Action amoxicillin-pot clavulanate 875-125 mg tablet 1 tab PO BID Qty: 20 0RF oxycodone 5 mg tablet 5 mg PO Q6H PRN (Reason: pain) Qty: 20 0RF Rx Instructions: Partial Fill upon patient request. Referrals: Physician,None [Primary Care Provider] - 12/19/22
[2022-12-16 22:18] LABS: C Reactive Protein 2.97 mg/dL (< or = 0.50)
[2022-12-16 22:29] LABS: Monotest Negative (Negative)
[2022-12-16 22:30] VITALS: BP 138/87; PULSE 113; RESP 14; TEMP 39.3; O2SAT 95
[2022-12-16 22:45] LABS: Erythrocyte Sedimentation Rate 2 MM/HR (0-15)
[2022-12-16 23:04] LABS: Appearance Urine Clear; Color Urine Dark Yellow; Glucose Urine UA Negative (Negative); Leukocyte Esterase Urine Negative (Negative); Nitrite Urine Negative (Negative); Specific Gravity - Urine >= 1.030 (1.005-1.025); UMIC TRIGGER UACC YES; Urine Blood Trace (Negative); Urine Ketones Trace mg/dL (Negative); Urine Protein Trace mg/dL (Neg-Trace)
[2022-12-16 23:06] LABS: Bacteria Urine None Seen (None Seen); Hyaline Casts Urine 0-2 /LPF (0-2); Squamous Epithelial Cell Urine 0-2 /HPF (0-2); WBC Urine 0-5 /HPF (0-5)
[2022-12-16] MEDS: Ketorolac Tromethamine 30 MG/ML VIAL IVPUSH (23:06)
[2022-12-16] MEDS: 0.9 % Sodium Chloride 1,000 ML 999 ML IV ×2 (23:07→23:08)
[2022-12-17 00:24] VITALS: BP 130/73; PULSE 97; RESP 18; TEMP 37.3; O2SAT 97
[2022-12-17] MEDS: Acetaminophen 325 MG TABLET 975 MG PO (00:48)
[2022-12-21 20:24] LABS: Babesia IgG <1:64 titer (<1:64); Babesia IgM <1:20 titer (<1:20)
[2022-12-21 22:44] LABS: Lyme Abs Screen <0.90 index
[2022-12-30 08:08] LABS: A. Phagocytophilum Ab IgG <1:64 (<1:64); A. Phagocytophilum Ab IgM <1:20 (<1:20); E. Chaffeensis Ab IgG <1:64 (<1:64); E. Chaffeensis Ab IgM <1:20 (<1:20)
== END 2022-12-17 00:58 | disposition home or self-care (01) ==
PROVIDERS: Emergency Provider Emergency Medicine Emergency Medical Services
DX: M54.50 Low back pain, unspecified (principal); R50.9 Fever, unspecified; R07.89 Other chest pain; Z20.822 Contact with and (suspected) exposure to COVID-19; Z20.828 Contact with and (suspected) exposure to other viral communicable diseases; Z79.899 Other long term (current) drug therapy
CPT/HCPCS: 0241U; 36415; 71045; 80053; 81001; 83605; 85025; 85652; 86140; 86308; 86617; 86618; 86666; 86753; 96361; 96374; 99284; J1885